=== PATIENT | female | born 1985 ===

== ENCOUNTER 2025-07-03 10:44 | Outpatient (REF) | payer OTHER, SELFPAY ==
[2025-07-03 16:28] LABS: Anion Gap 8.6 mmol/L (3-11); BUN 6 mg/dL (9-23); CO2 26.4 mmol/L (20.0-31.0); Calcium 9.5 mg/dL (8.3-10.6); Chloride 105 mmol/L (98-107); Cholesterol 176 mg/dL (<200); Glucose 91 mg/dL (74-106); HDL Cholesterol 56 mg/dL (>40); Potassium 3.8 mmol/L (3.5-5.1); Sodium 140 mmol/L (136-145)
== END 2025-07-03 10:45 | disposition home or self-care (01) ==
LOC: NCHCN 10:44
PROVIDERS: PCP Nurse Practitioner Family; Visit Provider Nurse Practitioner Family
DX: Z00.00 Encounter for general adult medical examination without abnormal findings (principal)
CPT/HCPCS: 80048; 80061